=== PATIENT | male | born 1960 | race Caucasian/White ===

== ENCOUNTER → 2019-09-29 15:05 | Outpatient (BNVA) | payer BC, SELFPAY | PROVIDERS: Family Provider Nurse Practitioner; PCP Nurse Practitioner; Referring Provider Nurse Practitioner; Visit Provider Internal Medicine Rheumatology | DX: M05.9 Rheumatoid arthritis with rheumatoid factor, unspecified (principal); Z79.899 Other long term (current) drug therapy; Z79.52 Long term (current) use of systemic steroids | CPT/HCPCS: 99213 ==

== ENCOUNTER → 2019-10-27 14:25 | Outpatient (BNVA) | payer BC, SELFPAY | PROVIDERS: Family Provider Nurse Practitioner; PCP Nurse Practitioner; Visit Provider Internal Medicine Rheumatology | DX: M05.9 Rheumatoid arthritis with rheumatoid factor, unspecified (principal); Z79.899 Other long term (current) drug therapy | CPT/HCPCS: 36415; 80076; 82565; 85651; 86140 ==

== ENCOUNTER → 2019-10-27 14:32 | Outpatient (BNVA) | payer BC, SELFPAY | PROVIDERS: Family Provider Nurse Practitioner; PCP Nurse Practitioner; Visit Provider Internal Medicine Rheumatology | DX: M05.9 Rheumatoid arthritis with rheumatoid factor, unspecified (principal); Z79.899 Other long term (current) drug therapy | CPT/HCPCS: 85025 ==

== ENCOUNTER → 2020-01-06 12:06 | Outpatient (BNVA) | payer BC, SELFPAY | PROVIDERS: Family Provider Nurse Practitioner; PCP Nurse Practitioner; Visit Provider Internal Medicine Rheumatology | DX: M05.9 Rheumatoid arthritis with rheumatoid factor, unspecified (principal); Z79.899 Other long term (current) drug therapy; Z79.52 Long term (current) use of systemic steroids | CPT/HCPCS: 36415; 80076; 82565; 85025; 85651; 86140 ==

== ENCOUNTER → 2020-03-29 14:56 | Outpatient (BNVA) | payer BC, SELFPAY | PROVIDERS: Family Provider Nurse Practitioner; PCP Nurse Practitioner; Visit Provider Internal Medicine Rheumatology | DX: M05.9 Rheumatoid arthritis with rheumatoid factor, unspecified (principal); Z71.9 Counseling, unspecified; Z79.899 Other long term (current) drug therapy | CPT/HCPCS: 36415; 80076; 82565; 85025; 85651; 86140 ==

== ENCOUNTER → 2020-04-06 14:50 | Outpatient (BNVA) | payer BC, SELFPAY | PROVIDERS: Family Provider Nurse Practitioner; PCP Nurse Practitioner; Visit Provider Internal Medicine Rheumatology | DX: M05.79 Rheumatoid arthritis with rheumatoid factor of multiple sites without organ or systems involvement (principal); Z79.899 Other long term (current) drug therapy; Z79.52 Long term (current) use of systemic steroids | CPT/HCPCS: 99214 ==

== ENCOUNTER → 2020-06-09 15:43 | Outpatient (BNVA) | payer BC, SELFPAY | PROVIDERS: Family Provider Nurse Practitioner; PCP Nurse Practitioner; Visit Provider Nurse Practitioner Family | DX: Z20.828 Contact with and (suspected) exposure to other viral communicable diseases (principal) | CPT/HCPCS: 87635 ==

== ENCOUNTER 2020-06-15 15:11 | Outpatient (CLI) | payer BC, SELFPAY ==
--- NOTE | 2020-06-15 15:14 | XRR_ITS ---
PROCEDURE INFORMATION: Exam: XR Chest, 1 View Exam date and time: 06/15/2020 3:27 PM Age: 60 years old Clinical indication: Abnormal findings; Other: Low o2 90 TECHNIQUE: Imaging protocol: XR of the chest Views: 1 view. COMPARISON: No relevant prior studies available. FINDINGS: Lungs: Unremarkable. No consolidation. Pleural space: Unremarkable. No pleural effusion. No pneumothorax. Heart/Mediastinum: Unremarkable. No cardiomegaly. Bones/joints: Unremarkable. XR/XR chest 1V [id number] IMPRESSION: No acute findings.
== END 2020-06-15 15:12 | disposition home or self-care (01) ==
LOC: RAD 15:13
PROVIDERS: PCP Nurse Practitioner; Visit Provider Nurse Practitioner
DX: U07.1 COVID-19 (principal)
CPT/HCPCS: 71045; 80053; 85025

== ENCOUNTER 2020-06-16 19:24 | Emergency (ER) | payer BC, SELFPAY ==
[2020-06-16] VITALS (9 sets, daily range): BP systolic 118–129; BP diastolic 74–87; PULSE 98–106; RESP 20–29; TEMP 37.3; O2SAT 88–94; BMI 30.8
--- NOTE | 2020-06-16 19:44 | XR_ITS ---
WS: [id number] Portable AP upright chest, 06/16/2020 Clinical Data: cp Comparison: AP chest, 06/15/2020. Findings: No nodules, masses or effusions are seen. The heart is normal. The pulmonary vascularity is not increased. No pneumonia or pneumothorax is seen. The aortic arch and descending aorta are tortuo us. There are monitor leads on the chest wall. There are 2 orthopedic anchors in the left humeral hea d. XR/XR chest 1V portable [id number] Impression: Atherosclerosis.
--- NOTE | 2020-06-16 19:50 | W.ED.SOB ---
HPI - SOB/Dyspnea General: Chief Complaint: Shortness of Breath/Dyspnea Stated Complaint: sob Time Seen by Provider: 06/16/20 19:34 Source: patient Mode of arrival: ambulatory Limitations: no limitations History of Present Illness: HPI Narrative: 60-year-old male who tested for COVID last week. Patient had a positive test. He states that today he started having worsening shortness of breath throughout the day along with a cough. Patient's pulse ox here on room air was in the low 80s and is currently on 4 L of oxygen. He has had fevers as well. He denies any chest pain. Denies any worsening or improving factors. MD elicited complaint: shortness of breath Associated symptoms: Reports fever(s); Deny abdominal pain, chest pain, nausea or vomiting Review of Systems Const: Reports: fever(s), chills and body aches Eyes: Denies: blurry vision or eye discomfort ENMT: Denies: throat pain or dental pain Card: Denies: chest pain Resp: Reports: dyspnea and non-productive cough GI: Denies: abdominal pain, nausea, vomiting or diarrhea : Denies: dysuria Musc: Denies: neck pain or back pain Skin/Breast: Denies: rash Neuro: Denies: headache(s) Psych: Denies: depression Todd/Lymph: Denies: easy bruising All/Imm: Denies: urticaria PFSH ED PFSH: Medical History (Updated 06/16/20 @ 20:53 by Panchito Mo MD) Encounter for health education High risk medication use Immunization counseling Other detention (current) drug therapy Rheumatoid arthritis with positive rheumatoid factor Seropositive rheumatoid arthritis of multiple sites Surgical History History of left cataract surgery History of partial surgical removal of colon Hx of eye surgery Hx of shoulder surgery S/P left knee arthroscopy Family History Other Cancer Diabetes Hypertension Rheumatoid arthritis Denies family history of Chronic kidney disease (CKD) Systemic lupus erythematosus (SLE) in adult Social History (Updated 06/15/20 @ 13:20 by ARMANDO Pretty) Smoking and tobacco status: never smoked Second hand smoke exposure: No Smoking risk assessment/counseling performed?: No Alcohol intake: never Desire information about alcohol rehabilitation?: No Counseling given: No Desire information about substance/drug rehabilitation?: No Counseling given: No Adopted: No Caregiver/support person: No Lives independently: Yes Household members: spouse Housing: House Marital status: service: No Current occupational status: employed History of recent travel: No Current gender identity: Male Physical Exam Const: COMMON NORMALS: no acute distress, patient oriented x3 and healthy appearing HENMT: COMMON NORMALS: normocephalic and atraumatic HEAD & SCALP: normocephalic and atraumatic Eye: COMMON NORMALS: Equal, round and reactive pupils present and EOMs intact bilaterally PUPIL: Yes Equal, round and reactive pupils present Neck/C-Spine: COMMON NORMALS: full ROM and supple Chest: COMMONS NORMALS: normal inspection of the chest and normal palpation of entire chest wall Resp: COMMON NORMALS: normal respiratory effort, No retractions and No use of accessory muscles AUSCULTATION: rales Cardio: COMMON NORMALS: regular rate, regular rhythm and No murmurs present (Cardio) RATE: regular rate RHYTHM: regular rhythm GI: COMMON NORMALS: Normal to inspection, nondistended, normoactive bowel sounds present, Soft to palpation, non-tender and no masses PALPATION: Yes Soft to palpation Extremity: COMMON NORMALS: normal to inspection and full ROM Neuro: COMMON NORMALS: patient oriented x3, moves all extremities and no focal motor deficits Psych: COMMON NORMALS: mental status grossly normal, Normal thought process present and cooperative THOUGHT PROCESS: Normal thought process present Skin: COMMON NORMALS: no rashes or lesions noted and no wounds GENERAL SKIN EXAM: no rashes or lesions noted Course Vital Signs: Vital signs: Vital Signs Temperature 99.1 F 06/16/20 19:41 Pulse Rate 103 H 06/16/20 19:41 Respiratory Rate 20 H 06/16/20 19:41 Blood Pressure 129/83 06/16/20 19:41 Pulse Oximetry 88 L 06/16/20 19:41 MDM - SOB/Dyspnea MDM Narrative: Medical decision making narrative: The patient presents here with COVID-19 pneumonia. Patient is done at this time. X-ray is consistent with COVID. We will have to transfer due to bed availability. I spoke to Dr. Palomo at [facility] and will transfer there. Patient has been stable while here. Lab Data: Labs: Lab Results 06/16/20 06/16/20 06/16/20 Range/Units 20:15 20:15 20:15 WBC 5.0 (4.0-10.0) 10^3/ uL RBC 4.68 (4.1-5.3) 10^6/u L Hgb 15.0 (11.7-16.6) g/dL Hct 44.4 (42.0-52.0) % MCV 94.9 H (80-94) fL MCH 32.1 (28.0-34.0) pg MCHC 33.8 (30.0-36.0) g/dL RDW 14.0 (12.1-15.1) % Plt Count 180 (130-400) 10^3/c mm MPV 10.7 H (7.4-10.4) fL Neut % (Auto) 85.2 % Lymph % (Auto) 6.4 % Swisher % (Auto) 7.8 % Eos % (Auto) 0.0 % Baso % (Auto) 0.2 % Neut # (Auto) 4.24 (1.8-7.7) 10^3/u L Lymph # (Auto) 0.3 L (0.8-4.8) 10^3/u L Swisher # (Auto) 0.4 (0.2-0.9) 10^3/u L Eos # (Auto) 0.0 (0.0-0.8) 10^3/u L Baso # (Auto) 0.0 (0.0-0.1) 10^3/u L Nucleated RBC % (a uto) 0 % Nucleated RBCs # 0.0 /100WBC Fibrinogen 462 (174-498) mg/dL Sodium 135 L (136-145) mmol/L Potassium 4.1 (3.5-5.1) mmol/L Chloride 97 L (98-107) mmol/L Carbon Dioxide 28 (22-29) mmol/L Anion Gap 14.1 (5-19) BUN 14 (6-20) mg/dL Creatinine 1.1 (0.7-1.2) mg/dL GFR Calculation 68.5 L (90-130) mL/min Glucose 130 H (65-115) mg/dL Calculated Osmolal ity 282 L (285-295) mOsm/k g Lactic Acid (0.5-2.2) mmol/L Calcium 8.6 (8.5-10.5) mg/dL Total Bilirubin 0.8 (0.15-1.2) mg/dL AST 88 H (0-40) U/L ALT 49 H (0-41) U/L Alkaline Phosphata se 38 L (40-130) IU/L Total Protein 6.9 (6.6-8.7) g/dL Albumin 3.7 (3.5-5.2) g/dL Globulin 3.2 (1.3-4.6) g/dL Influenza Type A A g (Negative) Influenza Type B A g (Negative) 06/16/20 06/16/20 Range/Units 20:15 20:15 WBC (4.0-10.0) 10^3/ uL RBC (4.1-5.3) 10^6/u L Hgb (11.7-16.6) g/dL Hct (42.0-52.0) % MCV (80-94) fL MCH (28.0-34.0) pg MCHC (30.0-36.0) g/dL RDW (12.1-15.1) % Plt Count (130-400) 10^3/c mm MPV (7.4-10.4) fL Neut % (Auto) % Lymph % (Auto) % Swisher % (Auto) % Eos % (Auto) % Baso % (Auto) % Neut # (Auto) (1.8-7.7) 10^3/u L Lymph # (Auto) (0.8-4.8) 10^3/u L Swisher # (Auto) (0.2-0.9) 10^3/u L Eos # (Auto) (0.0-0.8) 10^3/u L Baso # (Auto) (0.0-0.1) 10^3/u L Nucleated RBC % (a uto) % Nucleated RBCs # /100WBC Fibrinogen (174-498) mg/dL Sodium (136-145) mmol/L Potassium (3.5-5.1) mmol/L Chloride (98-107) mmol/L Carbon Dioxide (22-29) mmol/L Anion Gap (5-19) BUN (6-20) mg/dL Creatinine (0.7-1.2) mg/dL GFR Calculation (90-130) mL/min Glucose (65-115) mg/dL Calculated Osmolal ity (285-295) mOsm/k g Lactic Acid 1.8 (0.5-2.2) mmol/L Calcium (8.5-10.5) mg/dL Total Bilirubin (0.15-1.2) mg/dL AST (0-40) U/L ALT (0-41) U/L Alkaline Phosphata se (40-130) IU/L Total Protein (6.6-8.7) g/dL Albumin (3.5-5.2) g/dL Globulin (1.3-4.6) g/dL Influenza Type A A g Negative (Negative) Influenza Type B A g Negative (Negative) Imaging Data^: CXR: Attestation: I personally reviewed and interpreted this imaging study as follows: My impression: bilateral infiltrates c/w covid EKG Data^: EKG 1: Attestation: I personally reviewed and interpreted this EKG as follows: EKG Interpretation Date: 06/16/20 EKG interpretation time: 19:02 Interpretation: sinus tach hr [address] or t wave abnormalities qrs 95 qtc 382 Discharge Plan Discharge Patient Disposition: Xfer Other Clinical Impression: COVID-19 Condition: Stable Discharge Orders: Transfer Out of Facility (Order); Ordered 06/16/20 Ordered By: Panchito Mo Referrals: Gladys Stacy, COLLECTION CLERK-C [Primary Care Provider] - Coding Level of Care Code ED Professor Of Astronomy for Chg Fwd Exam Comprehensive
[2020-06-16] MEDS: dexamethasone 10 mg/mL INJ IVP (19:52)
[2020-06-16 20:31] LABS: Basophils % 0.2 %; Hematocrit 44.4 % (42.0-52.0); Lymphocytes # 0.3 10^3/uL (0.8-4.8); Lymphocytes % 6.4 %; Mean Corpuscular HGB Conc 33.8 g/dL (30.0-36.0); Mean Corpuscular Hemoglobin 32.1 pg (28.0-34.0); Mean Corpuscular Volume 94.9 fL (80-94); Mean Platelet Volume 10.7 fL (7.4-10.4); Monocytes # 0.4 10^3/uL (0.2-0.9); Monocytes % 7.8 %; Neutrophils # 4.24 10^3/uL (1.8-7.7); Neutrophils % 85.2 %; Nucleated Red Blood Cells % 0 %; Platelet Count 180 10^3/cmm (130-400); Red Blood Count 4.68 10^6/uL (4.1-5.3)
[2020-06-16 20:50] LABS: Fibrinogen 462 mg/dL (174-498); Lactic Sepsis W/Reflex 1.8 mmol/L (0.5-2.2)
[2020-06-16 20:51] LABS: Alanine Aminotransferase 49 U/L (0-41); Albumin Level 3.7 g/dL (3.5-5.2); Alkaline Phosphatase 38 IU/L (40-130); Blood Urea Nitrogen 14 mg/dL (6-20); Calcium 8.6 mg/dL (8.5-10.5); Carbon Dioxide 28 mmol/L (22-29); Chloride 97 mmol/L (98-107); Globulin 3.2 g/dL (1.3-4.6); Glomerular Filtration Rate 68.5 mL/min (90-130); Glucose 130 mg/dL (65-115); Osmolality Calculated 282 mOsm/kg (285-295); Sodium 135 mmol/L (136-145); Total Bilirubin 0.8 mg/dL (0.15-1.2); Total Protein 6.9 g/dL (6.6-8.7)
[2020-06-16 20:58] LABS: Anion Gap 14.1 (5-19); Aspartate Amino Transferase 88 U/L (0-40); Potassium 4.1 mmol/L (3.5-5.1)
[2020-06-16 21:12] LABS: Influenza A by IFA Negative (Negative); Influenza B by IFA Negative (Negative)
[2020-06-16 22:19] LABS: Lactate Dehydrogenase 574 U/L (135-225)
[2020-06-16 22:49] LABS: C Reactive Protein 84.1 mg/L (0.0-4.9)
[2020-06-16 23:00] LABS: Ferritin 1274 ng/mL (30-400)
[2020-06-17] VITALS: BP 130/82; PULSE 94; RESP 23; TEMP 37.3; O2SAT 91
[2020-06-17 01:00] VITALS: BP 136/88; PULSE 98; RESP 28; O2SAT 92
== END 2020-06-17 01:38 | disposition other institution (70) ==
PROVIDERS: Emergency Provider Emergency Medicine; PCP Nurse Practitioner
DX: U07.1 COVID-19 (principal)
CPT/HCPCS: 12345; 71045; 80053; 82728; 83605; 83615; 85025; 85378; 85384; 86140; 87804; 96365; 96375; 99284; 99285; J1100

== ENCOUNTER → 2020-07-25 11:21 | Outpatient (BNVA) | payer BC, SELFPAY | PROVIDERS: PCP Nurse Practitioner; Visit Provider Nurse Practitioner | DX: R00.2 Palpitations (principal) | CPT/HCPCS: 80053; 83735; 85025 ==

== ENCOUNTER → 2020-07-26 14:06 | Outpatient (BNVA) | payer BC, SELFPAY | PROVIDERS: PCP Nurse Practitioner; Visit Provider Nurse Practitioner | DX: R73.9 Hyperglycemia, unspecified (principal) | CPT/HCPCS: 83036 ==

== ENCOUNTER 2020-09-07 07:39 | Outpatient (CLI) | payer BC, SELFPAY ==
--- NOTE | 2020-09-07 07:49 | USCV_ITS ---
Federico Joyce Age: 60 Gender: M : 1960 Exam Date: 09/07/2020 08:05 Ordering Phys: Mayito Agudelo M.D ([email or web address]) Technologist: Blanca Taylor [place] [facility] [place]: PALPITATIONS BP: 129 / 89 HR: 80 Rhythm: Sinus Technical Quality: Adequate MEASUREMENTS (Male / Female) Normal Values 2D ECHO LV Diastolic Diameter PLAX 4.2 cm 4.2 - 5.9 / 3.9 - 5.3 cm LV Systolic Diameter PLAX 3.0 cm LV Chamber Size 4.6 cm IVS Diastolic Thickness 1.2 cm 0.6 - 1.0 / 0.6 - 0.9 cm IVS Systolic Thickness 1.4 cm LVPW Diastolic Thickness 1.3 cm 0.6 - 1.0 / 0.6 - 0.9 cm LVPW Systolic Thickness 1.4 cm RV Chamber Size 3.5 cm LVOT Diameter 2.0 cm LV Ejection Fraction 2D Teich 54.2 % LV Ejection Fraction MOD 2C 62.0 % LV Ejection Fraction 2C AL 62.1 % LA Diameter 3.2 cm LA Width 3.5 cm LA Height 4.4 cm RA Width 3.0 cm RA Height 3.5 cm Aorta at Sinotubular Diameter 2.8 cm M-MODE LV Diastolic Diameter MM 3.8 cm 4.2 - 5.9 / 3.9 - 5.3 cm LV Systolic Diameter MM 2.6 cm LV Ejection Fraction MM Teich 59.0 % IVS Diastolic Thickness MM 4.6 cm 0.6 - 1.0 / 0.6 - 0.9 cm IVS Systolic Thickness MM 2.3 cm LVPW Diastolic Thickness MM 0.9 cm 0.6 - 1.0 / 0.6 - 0.9 cm LVPW Systolic Thickness MM 1.7 cm Aortic Annulus Diameter 3.4 cm LA Ao Ratio MM 0.9 MV E Point Septal Separation 0.6 cm DOPPLER AV Peak Velocity 118.7 cm/s LVOT Peak Velocity 101.7 cm/s AV Area Cont Eq vti 2.8 cm squared AV Area Cont Eq pk 2.8 cm squared MV Area PHT 3.4 cm squared Mitral E to A Ratio 0.7 MV E' Velocity 49.4 cm/s Mitral E to MV E' Ratio 6.7 Mitral E to LV E' Lateral Ratio 5.6 Mitral E to LV E' Septal Ratio 8.4 TR Peak Velocity 166.0 cm/s TR Peak Gradient 11.0 mmHg TV Peak E Velocity 64.0 cm/s Right Atrial Pressure 3.0 mmHg Pulmonary Artery Systolic Pressu 14.0 mmHg PV Peak Velocity 50.0 cm/s RV Acceleration Time 0.1 s RV Ejection Time 0.3 s RV AcT/ET 0.3 FINDINGS Left Ventricle Normal left ventricular size and systolic function with no regional wall motion abnormalities. LVEF is 55 to 60%. Grade 1 diastolic dysfunction is present. Right Ventricle The right ventricle is normal in size and function. Right Atrium The right atrium is normal in size. Left Atrium The left atrium is normal in size. Mitral Valve Structurally normal mitral valve without significant stenosis or prolapse. There is no mitral regurgitation. Aortic Valve Structurally normal aortic valve without significant sclerosis or stenosis. There is trace aortic regurgitation. Tricuspid Valve Structurally normal tricuspid valve without significant stenosis or regurgitation. Insufficient TR jet to calculate RVSP. Pulmonic Valve Structurally normal pulmonic valve without significant stenosis. There is trace pulmonic regurgitation. Pericardium Normal pericardium without effusion. Aorta Normal ascending aorta dimension. CONCLUSIONS Normal with EF 55 to 60%. Grade 1 diastolic dysfunction is noted. No significant valvular heart disease is present. Trace aortic regurgitation and pulmonic regurgitation are noted. No comparison studies are available. Mayito Agudelo MD (Electronically Signed) Final Date: 15 September 2020 13:52 S
== END 2020-09-07 07:40 | disposition home or self-care (01) ==
LOC: US 07:41
PROVIDERS: PCP Nurse Practitioner; Visit Provider Internal Medicine
DX: R00.2 Palpitations (principal)
CPT/HCPCS: 93306

== ENCOUNTER → 2020-10-13 12:19 | Outpatient (BNVA) | payer OTHER, SELFPAY | PROVIDERS: PCP Nurse Practitioner; Visit Provider Nurse Practitioner | DX: R73.9 Hyperglycemia, unspecified (principal); Z29.9 Encounter for prophylactic measures, unspecified; K21.9 Gastro-esophageal reflux disease without esophagitis | CPT/HCPCS: 80053; 83036; 85025 ==

== ENCOUNTER → 2020-10-21 12:08 | Outpatient (BNVA) | payer OTHER, SELFPAY | PROVIDERS: PCP Nurse Practitioner; Visit Provider Internal Medicine Pulmonary Disease | DX: Z20.822 Contact with and (suspected) exposure to COVID-19 (principal); R06.02 Shortness of breath | CPT/HCPCS: 87635 ==

== ENCOUNTER 2020-10-25 10:11 | Outpatient (CLI) | payer OTHER, SELFPAY ==
--- NOTE | 2020-10-25 10:30 | CT_ITS ---
WS: [id number] CTA OF THE CHEST WITH PULMONARY EMBOLISM PROTOCOL TECHNIQUE: High-resolution contrast enhanced CTA of the chest with coronal and sagittal reformatted i mages with pulmonary embolism protocol. MIP images are also reviewed. CLINICAL INFORMATION: shortness of breath COMPARISON: None. DLP: 568.[address] scans at [facility] use at least one of these dose optimization techniques: automat ed exposure control; mA and/or kV adjustment per patient size (includes targeted exams where dose is matched to clinical indication); or iterative reconstruction. FINDINGS: Proximal main pulmonary arteries are normal. Normal segmental and subsegmental pulmonary arteries. No evidence of pulmonary embolus. Advanced chronic emphysematous changes. Slight atelectasis in the lung bases. Hazy atelectasis in the mid and lower lungs. No mediastinal or hilar lymphadenopathy. Cholelithiasis. Adrenal glands are normal. Small esophageal hiatal hernia. CT/CT angio chest PE protcl [id number] IMPRESSION: 1. No evidence of pulmonary embolus. 2. Advanced chronic emphysematous changes with hazy atelectasis in the mid and lower lungs. 3. No focal pneumonia or pleural fluid. 4. Cholelithiasis.
[2020-10-25] MEDS: iohexol 350 mg/mL 100 mL Btl IV (10:37)
--- NOTE | 2020-10-25 14:09 | PFTS_ITS ---
Date of Study:10/25/20 Date of Dictation: MECHANICS: Forced vital capacity (FVC) is normal. Forced expiratory volume in one second (FEV1) is normal. FEV1/FVC is normal. FLOW VOLUME LOOP: Normal. LUNG VOLUMES: Total lung capacity (TLC) is reduced. Residual volume (RV) is reduced. DIFFUSING CAPACITY FOR CARBON MONOXIDE: Normal. INTERPRETATION: The prebronchodilator spirometry is normal. Lung volumes showed mild reduction of total lung capacity and residual volume. This could be suggestive of early interstitial lung disease. Gas exchange (DLCO) is normal. MTDD
== END 2020-10-25 10:12 | disposition home or self-care (01) ==
LOC: CT 10:17
PROVIDERS: PCP Nurse Practitioner; Visit Provider Internal Medicine Pulmonary Disease
DX: R06.02 Shortness of breath (principal); J06.9 Acute upper respiratory infection, unspecified; K80.20 Calculus of gallbladder without cholecystitis without obstruction
CPT/HCPCS: 71275; 94010; 94618; 94726; 94729

== ENCOUNTER → 2020-11-29 15:19 | Outpatient (BNVA) | payer OTHER, SELFPAY | PROVIDERS: PCP Nurse Practitioner; Visit Provider Internal Medicine Rheumatology | DX: M05.79 Rheumatoid arthritis with rheumatoid factor of multiple sites without organ or systems involvement (principal); Z79.899 Other long term (current) drug therapy; Z79.52 Long term (current) use of systemic steroids; Z86.16 Personal history of COVID-19 | CPT/HCPCS: 99214 ==

== ENCOUNTER → 2021-01-12 12:10 | Outpatient (BNVA) | payer OTHER, SELFPAY | PROVIDERS: PCP Nurse Practitioner; Visit Provider Nurse Practitioner | DX: E11.65 Type 2 diabetes mellitus with hyperglycemia (principal); K21.9 Gastro-esophageal reflux disease without esophagitis | CPT/HCPCS: 80053; 80061; 83036 ==

== ENCOUNTER → 2021-01-26 09:58 | Outpatient (BNVA) | payer OTHER, SELFPAY | PROVIDERS: PCP Nurse Practitioner; Visit Provider Internal Medicine Rheumatology | DX: Z79.899 Other long term (current) drug therapy (principal); M05.79 Rheumatoid arthritis with rheumatoid factor of multiple sites without organ or systems involvement | CPT/HCPCS: 36415; 80076; 82565; 85025; 86140 ==

== ENCOUNTER → 2021-04-03 10:52 | Outpatient (BNVA) | payer OTHER, SELFPAY | PROVIDERS: PCP Nurse Practitioner; Visit Provider Internal Medicine Rheumatology | DX: M05.79 Rheumatoid arthritis with rheumatoid factor of multiple sites without organ or systems involvement (principal); Z79.899 Other long term (current) drug therapy; Z71.89 Other specified counseling | CPT/HCPCS: 99214 ==

== ENCOUNTER → 2021-05-23 15:22 | Outpatient (BNVA) | payer OTHER, SELFPAY | PROVIDERS: PCP Nurse Practitioner; Visit Provider Nurse Practitioner | DX: E11.65 Type 2 diabetes mellitus with hyperglycemia (principal); M05.79 Rheumatoid arthritis with rheumatoid factor of multiple sites without organ or systems involvement; Z79.899 Other long term (current) drug therapy; E66.9 Obesity, unspecified | CPT/HCPCS: 80053; 80076; 82565; 83036; 85025; 86140 ==

== ENCOUNTER → 2021-07-12 10:48 | Outpatient (BNVA) | payer OTHER, SELFPAY | PROVIDERS: PCP Nurse Practitioner; Visit Provider Internal Medicine Pulmonary Disease | DX: R06.02 Shortness of breath (principal); Z20.822 Contact with and (suspected) exposure to COVID-19 | CPT/HCPCS: 87635 ==

== ENCOUNTER 2021-07-18 10:45 | Outpatient (CLI) | payer OTHER, SELFPAY ==
--- NOTE | 2021-07-18 12:59 | PFTS_ITS ---
Date of Study:07/18/21 Date of Dictation: MECHANICS: Forced vital capacity (FVC) is normal. Forced expiratory volume in one second (FEV1) is normal. FEV1/FVC is normal. FLOW VOLUME LOOP: Normal. LUNG VOLUMES: Total lung capacity (TLC) is normal. Residual volume (RV) is reduced minimally. DIFFUSING CAPACITY FOR CARBON MONOXIDE: Normal. INTERPRETATION: The pulmonary function tests are normal. The minimally reduced residual volume is a nonspecific finding. Gas exchange (DLCO) is normal. MTDD
== END 2021-07-18 10:46 | disposition home or self-care (01) ==
LOC: RT 10:48
PROVIDERS: PCP Nurse Practitioner; Visit Provider Internal Medicine Pulmonary Disease
DX: R06.02 Shortness of breath (principal)
CPT/HCPCS: 94010; 94726; 94729

== ENCOUNTER → 2021-07-25 12:58 | Outpatient (BNVA) | payer OTHER, SELFPAY | PROVIDERS: PCP Nurse Practitioner; Visit Provider Internal Medicine Rheumatology | DX: M05.79 Rheumatoid arthritis with rheumatoid factor of multiple sites without organ or systems involvement (principal); Z79.899 Other long term (current) drug therapy; R74.01 Elevation of levels of liver transaminase levels; Z98.49 Cataract extraction status, unspecified eye; Z71.89 Other specified counseling; Z87.891 Personal history of nicotine dependence | CPT/HCPCS: 99214 ==

== ENCOUNTER → 2021-08-02 15:33 | Outpatient (BNVA) | payer OTHER, SELFPAY | PROVIDERS: PCP Nurse Practitioner; Visit Provider Internal Medicine Rheumatology | DX: M05.9 Rheumatoid arthritis with rheumatoid factor, unspecified (principal); Z79.899 Other long term (current) drug therapy; M05.79 Rheumatoid arthritis with rheumatoid factor of multiple sites without organ or systems involvement | CPT/HCPCS: 80076; 82565; 85025; 86140 ==

== ENCOUNTER → 2021-09-11 16:06 | Outpatient (BNVA) | payer OTHER, SELFPAY | PROVIDERS: PCP Nurse Practitioner; Visit Provider Nurse Practitioner Family | DX: Z20.828 Contact with and (suspected) exposure to other viral communicable diseases (principal); Z20.822 Contact with and (suspected) exposure to COVID-19 | CPT/HCPCS: 87635 ==

== ENCOUNTER 2021-09-14 09:47 | Outpatient (CLI) | payer OTHER, SELFPAY ==
[2021-09-14 10:20] VITALS: BP 134/91; BP 135/92; PULSE 73; PULSE 77; RESP 16; RESP 18; TEMP 36.6; TEMP 36.8; O2SAT 95; O2SAT 97; BMI 31.5
[2021-09-14 11:00] VITALS: BP 130/85; PULSE 68; RESP 16; TEMP 36.7; O2SAT 96
[2021-09-14 12:00] VITALS: BP 135/92; PULSE 73; RESP 16; TEMP 36.7; O2SAT 95
== END 2021-09-14 09:48 | disposition home or self-care (01) ==
LOC: OPS 09:48
PROVIDERS: PCP Nurse Practitioner; Visit Provider Nurse Practitioner Family
DX: U07.1 COVID-19 (principal)
CPT/HCPCS: 96365

== ENCOUNTER → 2021-09-28 10:39 | Outpatient (BNVA) | payer OTHER, SELFPAY | PROVIDERS: PCP Nurse Practitioner; Visit Provider Nurse Practitioner | DX: E11.65 Type 2 diabetes mellitus with hyperglycemia (principal); R74.8 Abnormal levels of other serum enzymes; E78.1 Pure hyperglyceridemia; E11.69 Type 2 diabetes mellitus with other specified complication; E66.9 Obesity, unspecified | CPT/HCPCS: 80053; 80061; 82043; 83036 ==

== ENCOUNTER → 2021-10-11 13:56 | Outpatient (BNVA) | payer OTHER, SELFPAY | PROVIDERS: PCP Nurse Practitioner; Visit Provider Registered Nurse Neonatal Intensive Care | DX: M25.512 Pain in left shoulder (principal) | CPT/HCPCS: 73030 ==

== ENCOUNTER → 2022-02-05 15:57 | Outpatient (BNVA) | payer OTHER, SELFPAY | PROVIDERS: PCP Nurse Practitioner; Visit Provider Nurse Practitioner | DX: E78.1 Pure hyperglyceridemia (principal); E11.65 Type 2 diabetes mellitus with hyperglycemia; E11.69 Type 2 diabetes mellitus with other specified complication; E66.9 Obesity, unspecified | CPT/HCPCS: 80053; 80061; 82043; 83036; 83721 ==

== ENCOUNTER 2022-04-13 06:07 | Outpatient (CLI) | payer OTHER, SELFPAY ==
--- NOTE | 2022-04-13 06:15 | US_ITS ---
WS: [id number] RIGHT UPPER QUADRANT ULTRASOUND HISTORY: R79.89 - Other specified abnormal findings of blood chemi... COMPARISON: None available. Liver: 18.5 cm in length. Moderate enlargement of the liver with marked hepatic steatosis. Low-attenu ation throughout the liver. No mass or bile duct dilatation. Portal Vein: Normal hepatopetal flow with monophasic waveform. Gallbladder: Normally distended gallbladder with no stones or wall thickening. CBD: 0.4 cm Pancreas: Normal size and echogenicity. Right kidney: 12.1 cm in length. Normal size and echogenicity. No hydronephrosis or mass. Aorta and IVC: Unremarkable abdominal aorta and IVC. No ascites. US/US liver [id number] IMPRESSION: Moderate hepatomegaly and hepatic steatosis.
== END 2022-04-13 06:08 | disposition home or self-care (01) ==
PROVIDERS: PCP Nurse Practitioner; Visit Provider Internal Medicine Rheumatology
DX: R79.89 Other specified abnormal findings of blood chemistry (principal); R16.0 Hepatomegaly, not elsewhere classified; K76.0 Fatty (change of) liver, not elsewhere classified
CPT/HCPCS: 76705

== ENCOUNTER 2022-07-04 10:12 | Outpatient (CLI) | payer OTHER, SELFPAY ==
[2022-07-04 10:32] LABS: Basophils # 0.1 10^3/uL (0.0-0.1); Basophils % 0.6 %; Eosinophils # 0.1 10^3/uL (0.0-0.8); Eosinophils % 1.4 %; Hematocrit 48.9 % (42.0-52.0); Hemoglobin 16.6 g/dL (11.7-16.6); Lymphocytes # 2.2 10^3/uL (0.8-4.8); Lymphocytes % 22.9 %; Mean Corpuscular HGB Conc 33.9 g/dL (30.0-36.0); Mean Corpuscular Hemoglobin 31.1 pg (28.0-34.0); Mean Corpuscular Volume 91.6 fl (80-94); Mean Platelet Volume 10.5 fL (7.4-10.4); Monocytes # 1.1 10^3/uL (0.2-0.9); Monocytes % 11.7 %; Neutrophils # 5.97 10^3/uL (1.8-7.7); Neutrophils % 63.2 %; Nucleated Red Blood Cells % 0 %; Platelet Count 276 10^3/cmm (130-400); Red Blood Count 5.34 10^6/uL (4.1-5.3); Red Cell Distribution Width 12.8 % (12.1-15.1); White Blood Count 9.4 10^3/uL (4.0-10.0)
[2022-07-04 10:56] LABS: Alanine Aminotransferase 91 U/L (0-41); Albumin Level 4.3 g/dL (3.5-5.2); Alkaline Phosphatase 71 U/L (40-130); Aspartate Amino Transferase 67 U/L (0-40); Globulin 3.5 g/dL (1.3-4.6); Glomerular Filtration Rate 68.1 mL/min (90-130); Total Bilirubin 0.6 mg/dL (0.15-1.2); Total Protein 7.8 g/dL (6.6-8.7)
== END 2022-07-04 10:13 | disposition home or self-care (01) ==
LOC: LAB 10:13
PROVIDERS: PCP Nurse Practitioner; Visit Provider Internal Medicine Rheumatology
DX: M05.79 Rheumatoid arthritis with rheumatoid factor of multiple sites without organ or systems involvement (principal); Z79.899 Other long term (current) drug therapy
CPT/HCPCS: 80076; 82565; 85025; 86140

== ENCOUNTER 2022-10-30 13:17 | Outpatient (CLI) | payer OTHER, SELFPAY ==
[2022-10-30 14:12] LABS: Basophils # 0.1 10^3/uL (0.0-0.1); Basophils % 0.6 %; Eosinophils # 0.2 10^3/uL (0.0-0.8); Eosinophils % 2.4 %; Hematocrit 46.9 % (42.0-52.0); Hemoglobin 15.9 g/dL (11.7-16.6); Lymphocytes # 3.4 10^3/uL (0.8-4.8); Mean Corpuscular HGB Conc 33.9 g/dL (30.0-36.0); Mean Corpuscular Hemoglobin 30.1 pg (28.0-34.0); Mean Corpuscular Volume 88.7 fl (80-94); Mean Platelet Volume 10.5 fL (7.4-10.4); Monocytes # 1.1 10^3/uL (0.2-0.9); Monocytes % 12.6 %; Neutrophils # 4.29 10^3/uL (1.8-7.7); Neutrophils % 47.2 %; Nucleated Red Blood Cells % 0 %; Platelet Count 247 10^3/cmm (130-400); Red Blood Count 5.29 10^6/uL (4.1-5.3); Red Cell Distribution Width 12.8 % (12.1-15.1); White Blood Count 9.1 10^3/uL (4.0-10.0)
[2022-10-30 14:30] LABS: Alanine Aminotransferase 64 U/L (0-41); Albumin Level 4.3 g/dL (3.5-5.2); Alkaline Phosphatase 58 U/L (40-130); Aspartate Amino Transferase 47 U/L (0-40); Globulin 2.8 g/dL (1.3-4.6); Glomerular Filtration Rate 85.8 mL/min (90-130); Total Protein 7.1 g/dL (6.6-8.7)
[2022-10-30 14:37] LABS: Erythrocyte Sedimentation Rate 8 mm/hr (0-10)
== END 2022-10-30 13:18 | disposition home or self-care (01) ==
LOC: LAB 13:20
PROVIDERS: PCP Nurse Practitioner; Visit Provider Internal Medicine Rheumatology
DX: M05.79 Rheumatoid arthritis with rheumatoid factor of multiple sites without organ or systems involvement (principal); Z79.899 Other long term (current) drug therapy
CPT/HCPCS: 36415; 80076; 82565; 85025; 85651; 86140

== ENCOUNTER → 2022-11-22 11:05 | Outpatient (BNVA) | payer OTHER, SELFPAY | PROVIDERS: PCP Nurse Practitioner; Visit Provider Nurse Practitioner | DX: E11.65 Type 2 diabetes mellitus with hyperglycemia (principal); E55.9 Vitamin D deficiency, unspecified | CPT/HCPCS: 80053; 80061; 81000; 82043; 82306; 83036; 84443 ==

== ENCOUNTER → 2022-12-20 13:36 | Outpatient (BNVA) | payer OTHER, SELFPAY | PROVIDERS: PCP Nurse Practitioner; Visit Provider Nurse Practitioner | DX: R41.3 Other amnesia (principal); E11.65 Type 2 diabetes mellitus with hyperglycemia; M05.79 Rheumatoid arthritis with rheumatoid factor of multiple sites without organ or systems involvement; Z79.899 Other long term (current) drug therapy | CPT/HCPCS: 80053; 82607; 84439; 84443; 84481; 85025 ==

== ENCOUNTER → 2023-04-17 14:40 | Outpatient (BNVA) | payer OTHER, SELFPAY | PROVIDERS: PCP Nurse Practitioner; Visit Provider Internal Medicine Rheumatology | DX: M05.79 Rheumatoid arthritis with rheumatoid factor of multiple sites without organ or systems involvement (principal); Z79.899 Other long term (current) drug therapy | CPT/HCPCS: 80076; 82565; 85025; 86140 ==

== ENCOUNTER → 2023-05-02 13:42 | Outpatient (BNVA) | payer OTHER, SELFPAY | PROVIDERS: PCP Nurse Practitioner; Visit Provider Nurse Practitioner | DX: E11.65 Type 2 diabetes mellitus with hyperglycemia (principal) | CPT/HCPCS: 80053; 80061; 82043; 83036; 84443 ==

== ENCOUNTER → 2023-10-17 14:37 | Outpatient (BNVA) | payer OTHER, SELFPAY | PROVIDERS: PCP Nurse Practitioner; Visit Provider Nurse Practitioner | DX: E11.65 Type 2 diabetes mellitus with hyperglycemia (principal); E78.1 Pure hyperglyceridemia; Z12.5 Encounter for screening for malignant neoplasm of prostate; E55.9 Vitamin D deficiency, unspecified | CPT/HCPCS: 80053; 80061; 82306; 82607; 84443; 85025; G0103 ==

== ENCOUNTER → 2024-03-10 09:57 | Outpatient (BNVA) | payer OTHER, SELFPAY | PROVIDERS: PCP Family Medicine; Visit Provider Family Medicine | DX: Z79.899 Other long term (current) drug therapy (principal); M05.79 Rheumatoid arthritis with rheumatoid factor of multiple sites without organ or systems involvement | CPT/HCPCS: 80076; 82565; 85025; 86140 ==

== ENCOUNTER → 2024-09-22 10:48 | Outpatient (BNVA) | payer OTHER, SELFPAY | PROVIDERS: Visit Provider Internal Medicine Rheumatology | DX: M05.79 Rheumatoid arthritis with rheumatoid factor of multiple sites without organ or systems involvement (principal); Z79.899 Other long term (current) drug therapy | CPT/HCPCS: 36415; 80076; 82565; 85025; 85651; 86140 ==

== ENCOUNTER → 2024-09-28 14:01 | Outpatient (BNVA) | payer OTHER, SELFPAY | PROVIDERS: Visit Provider Nurse Practitioner Family | DX: M54.2 Cervicalgia (principal); M54.9 Dorsalgia, unspecified; G89.29 Other chronic pain; M47.896 Other spondylosis, lumbar region; M47.892 Other spondylosis, cervical region | CPT/HCPCS: 72040; 72100 ==

== ENCOUNTER 2024-10-09 13:31 | Outpatient (CLI) | payer OTHER, SELFPAY ==
--- NOTE | 2024-10-09 14:00 | USCV_ITS ---
Federico Joyce Age: 64 Gender: M : 1960 Exam Date: 10/09/2024 13:48 Ordering Phys: Kaleigh Carmona CLOTHING SUPERVISOR-Babak Technologist: LORA [place] [facility] [place] Indication: stenosis Risk Factors: Previous Vascular Surgery: Right Brachial BP: / Left Brachial BP: / Right Left Velocity (cm/s) Spectral Plaque Velocity (cm/s) Spectral Plaque Syst/Diast Broadening Syst/Diast Broadening 78.30/ 21.70 Prox CCA 85.60 / 27.20 102.00/29.00 Mid CCA 92.90 / 30.80 85.30/ 34.40 Distal CCA 98.40 / 32.70 64.80/ 21.90 Prox ICA 95.60 / 25.90 63.50/ 19.30 Mid ICA 80.40 / 32.50 55.40/ 26.10 Distal ICA 91.90 / 21.20 117.00 ECA 132.60 0.80 ICA/CCA 1.00 Antegrade Vertebral Antegrade 32.20/ 10.60 cm/s 34.20/ 9.70 cm/s Tri Subclavian Tri 86.20 105.7 0 FINDINGS Comparison: none available. No significant elevation of systolic or diastolic velocities. Waveforms are normal. Minimal carotid atherosclerosis. CONCLUSIONS Bilateral ICA stenosis less than 50%. Mild carotid atherosclerosis. Dr. Yashira Woods DO (Electronically Signed) Final Date: 09 October 2024 14:43 S
== END 2024-10-09 13:32 | disposition home or self-care (01) ==
LOC: RAD 13:31
PROVIDERS: PCP Nurse Practitioner Family; Visit Provider Nurse Practitioner Family
DX: I65.23 Occlusion and stenosis of bilateral carotid arteries (principal)
CPT/HCPCS: 93880

== ENCOUNTER → 2024-10-14 16:58 | Outpatient (BNVA) | payer OTHER, SELFPAY | PROVIDERS: PCP Nurse Practitioner Family; Visit Provider Nurse Practitioner Family | DX: E11.65 Type 2 diabetes mellitus with hyperglycemia (principal) | CPT/HCPCS: 80053; 80061; 83036; 84443; 85025 ==

== ENCOUNTER → 2024-12-09 09:48 | Outpatient (BNVA) | payer OTHER, SELFPAY | PROVIDERS: PCP Nurse Practitioner Family; Visit Provider Nurse Practitioner Family | DX: E05.90 Thyrotoxicosis, unspecified without thyrotoxic crisis or storm (principal) | CPT/HCPCS: 84443 ==

== ENCOUNTER 2025-01-26 14:47 | Emergency (ER) | payer OTHER, SELFPAY ==
--- NOTE | 2025-01-26 14:48 | XR_ITS ---
WS: [id number] Exam: XR chest 1V portable [id number] Date/Time of Exam: 01/26/2025 2:48 PM Reason For Exam: cp Comparison 06/17/2020. Lungs are fully expanded and clear. Normal cardiomediastinal silhouette. Bony structures are intact. No pleural effusion. Chronic change in the LEFT base. XR/XR chest 1V portable [id number] IMPRESSION: 1. No acute cardiopulmonary finding.
--- NOTE | 2025-01-26 14:48 | ECG_ITS ---
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
[2025-01-26 14:50] VITALS: BP 119/77; PULSE 77; RESP 16; TEMP 36.7; O2SAT 97; BMI 28.7
--- NOTE | 2025-01-26 15:03 | ED_ITS ---
HPI - Chest Pain 2 General: Chief Complaint: Chest Pain Stated Complaint: chest pain Time Seen by Provider: 01/26/25 14:59 Source: patient Mode of arrival: ambulatory Limitations: no limitations History of Present Illness: 65-year-old male states started having c hest pain today around 11 states been a pressure pain has been light nature rates a 2 out of 10 currently no history of heart disease he denies any nausea or diaphoresis denies any shortness of breath denies any radiation of his pain. Associated symptoms: Deny abdominal pain, dyspnea, fever(s), nausea or vomiting Related Data Home Medications ?Medication ?Instructions ?Recorded ?Confirmed dorzolamide 2 % eye drops 1 drp ophthalmic (eye) BID 0 01/26/25 01/26/25 timolol maleate 0.5 % eye drops 1 drp ophthalmic (eye) BID 01/26/25 01/26/25 Previous Rx's ?Medication ?Instructions ?Recorded fenofibrate nanocrystallized 145 145 mg PO DAILY #90 t abs 10/12/24 mg tablet (Tricor) metformin 500 mg tablet,extended 500 mg PO BID #180 ta bs 10/12/24 release 24 hr adalimumab 40 mg/0.8 mL 40 mg (0.8 mL) SUBCUT Q14D # 2 ea 11/23/24 subcutaneous pen kit (Humira Pen) Allergies Allergy/AdvReac Type Severity Reaction Status Date / Time antipyrine (From Otic Care Allergy unknown Verified 09/29/24 14:20 (antipyrine)) benzocaine (From Otic Care Allergy unknown Verified 09/29/24 14:20 (antipyrine)) Review of Systems 2 Const: Denies: fever(s), chills, body aches or change in appetite ENMT: Denies: throat pain or dental pain Card: Reports: chest pain Resp: Denies: dyspnea GI: Denies: abdominal pain, nausea, vomiting or diarrhea Musc: Denies: neck pain or back pain Skin/Breast: Denies: rash Neuro: Denies: headache(s) PFSH ED 2 PFSH: Medical History Pulmonary embolism COVID-19 Immunization counseling Seropositive rheumatoid arthritis of multiple sites High risk medication use Encounter for health education Other care home (current) drug therapy Rheumatoid arthritis with positive rheumatoid factor Surgical History S/P left knee arthroscopy History of partial surgical removal of colon Hx of shoulder surgery Hx of eye surgery History of left cataract surgery Family History Other Cancer Diabetes Hypertension Rheumatoid arthritis Denies family history of Chronic kidney disease (CKD) Systemic lupus erythematosus (SLE) in adult Social History Smoking and tobacco/nicotine status: never used tobacco/nicotine Second hand smoke exposure: Yes Alcohol intake: current Alcohol intake frequency: holidays/special occasions only Substance/Drug Use: never Adopted: No Caregiver/support person: No Lives independently: Yes Household members: spouse Housing: House Marital status: service: No Current occupational status: employed Pets and animals: No Do you think of yourself as: Straight/Heterosexual Current gender identity: Male Physical Exam 2 Const: COMMON NORMALS: no acute distress, patient oriented x3 and healthy appearing HENMT: COMMON NORMALS: normocephalic and atraumatic HEAD & SCALP: n ormocephalic and atraumatic Eye: COMMON NORMALS: conjunctivae normal CONJUNCTIVA: Yes conjunctivae normal Neck/C-Spine: COMMON NORMALS: full ROM and supple Chest: COMMONS NORMALS: normal inspection of the chest Resp: COMMON NORMALS: normal respiratory effort, No retractions, No use of accessory muscles and clear to auscultation bilaterally AUSCULTATION: clear to auscultation bilaterally Cardio: COMMON NORMALS: regular rate, regular rhythm and No murmurs present (Cardio) RATE: regular rate RHYTHM: regular rhythm Extremity: COMMON NORMALS: normal to inspection and full ROM Neuro: COMMON NORMALS: patient oriented x3, moves all extremities and no focal motor deficits Psych: COMMON NORMALS: mental status grossly normal, Normal thought process present and cooperative THOUGHT PROCESS: Normal thought process present Skin: COMMON NORMALS: no rashes or lesions noted and no wounds GENERAL SKIN EXAM: no rashes or lesions noted Course 2 Vital Signs: Vital signs: Vital Signs Temperature 98.0 F 01/26/25 14:50 Pulse Rate 81 01/26/25 16:17 Respiratory Rate 16 01/26/25 14:50 Blood Pressure 115/88 01/26/25 16:17 Pulse Oximetry 96 01/26/25 16:17 Oxygen Delivery Me thod Room Air 01/26/25 16:17 MDM - Chest Pain Medical Decision Making Patient presents for chest pain initial repeat troponins are negative he has been pain-free here no signs of ACS he has no signs of dissection or pulm embolism he stable for discharge has follow-up with PCP return if worsening he understands agrees to plan Medical Records I reviewed the patient's medical records. Lab Data I reviewed the patient's lab results. 01/26/25 15:05 01/26/25 15:05 Radiology Impressions Chest X-Ray 01/26/25 14:48 IMPRESSION: 1. No acute cardiopulmonary finding. Laboratory Results WBC 10.15 10^3/uL (3.29-11.43) 01/26/25 15:05 RBC 5.53 10^6/uL (3.85-5.65) 01/26/25 15:05 Hgb 16.40 g/dL (11.27-16.99) 01/26/25 15:05 Hct 48.3 % (37-53) 01/26/25 15:05 MCV 87.3 fl (82-101) 01/26/25 15:05 MCH 29.7 pg (27-33) 01/26/25 15:05 MCHC 34.0 g/dL (30-55) 01/26/25 15:05 RDW 13.2 % (12.1-15.1) 01/26/25 15:05 Plt Count 236 10^3/cmm (157-399) 01/26/25 15:05 MPV 10.0 fL (7.4-10.4) 01/26/25 15:05 Neut % (Auto) 78.3 % 01/26/25 15:05 Lymph % (Auto) 10.9 % 01/26/25 15:05 [place] % (Auto) 8.6 % 01/26/25 15:05 Eos % (Auto) 1.7 % 01/26/25 15:05 Baso % (Auto) 0.2 % 01/26/25 15:05 Neut # (Auto) 7.95 10^3/uL (1.8-7.7) H 01/26/25 15:05 Lymph # (Auto) 1.1 10^3/uL (0.8-4.8) 01/26/25 15:05 [place] # (Auto) 0.9 10^3/uL (0.2-0.9) 01/26/25 15:05 Eos # (Auto) 0.2 10^3/uL (0.0-0.8) 01/26/25 15:05 Baso # (Auto) 0.0 10^3/uL (0.0-0.1) 01/26/25 15:05 Nucleated RBC % (auto) 0 % 01/26/25 15:05 Nucleated RBCs # 0.0 /100WBC 01/26/25 15:05 PT 13.40 SECONDS (12.1-14.9) 01/26/25 15:05 INR 0.95 (0.8-1.2) 01/26/25 15:05 Sodium 142 mmol/L (136-145) 01/26/25 15:05 Potassium 4.4 mmol/L (3.5-5.1) 01/26/25 15:05 Chloride 105 mmol/L (98-107) 01/26/25 15:05 Carbon Dioxide 23 mmol/L (22-29) 01/26/25 15:05 Anion Gap 18.4 (5-19) 01/26/25 15:05 BUN 18 mg/dL (8-23) 01/26/25 15:05 Creatinine 0.9 mg/dL (0.7-1.2) 01/26/25 15:05 GFR Calculation 85.0 mL/min (90-130) L 01/26/25 15:05 Glucose 100 mg/dL (65-115) 01/26/25 15:05 Calculated Osmolality 296 mOsm/kg (285-295) H 01/26/25 15:05 Calcium 9.3 mg/dL (8.5-10.5) 01/26/25 15:05 Total Bilirubin 1.0 mg/dL (0.15-1.2) 01/26/25 15:05 AST 38 U/L (0-40) 01/26/25 15:05 ALT 35 U/L (0-41) 01/26/25 15:05 Alkaline Phosphatase 53 U/L (40-130) 01/26/25 15:05 Troponin T Baseline 9 ng/L (0-15) 01/26/25 15:05 Troponin T 120 Minute 8.89 ng/L (0-15) 01/26/25 16:59 Delta Troponin T -0.11 ABS# (0-10) L 01/26/25 16:59 Total Protein 7.9 g/dL (6.6-8.7) 01/26/25 15:05 Albumin 4.5 g/dL (3.5-5.2) 01/26/25 15:05 Globulin 3.4 g/dL (1.3-4.6) 01/26/25 15:05 Lipase 24 U/L (13-60) 01/26/25 15:05 All radiology interpretation(s) finalized by discharge EKG Data EKG 1: I personally reviewed and interpreted this EKG as follows: EKG interpretation date: 01/26/25 EKG interpretation time: 14:54 Interpretation: nsr hr [address] elevation qrs 96 qtc 386 EKG 2: I personally reviewed and interpreted this EKG as follows: EKG interpretation date: 01/26/25 EKG interpretation time: 16:29 Interpretation: nsr hr [address] elevation qrs 102 [id number] Discharge Plan Discharge Patient Disposition: Home Clinical Impression: Chest pain Condition: Stable Prescriptions: No Action fenofibrate nanocrystallized [Tricor] 145 mg tablet 145 mg PO DAILY Qty: 90 1RF metformin 500 mg tablet extended release 24 hr 500 mg PO BID Qty: 180 1RF Humira Pen 40 mg/0.8 mL pen injector kit 40 mg SUBCUT Q14D Qty: 2 6RF timolol maleate 0.5 % drops 1 drp ophthalmic (eye) BID dorzolamide 2 % drops 1 drp ophthalmic (eye) BID Discharge Orders: Discharge ED (Routine); Ordered 01/26/25 Ordered By: Panchito Mo Referrals: Kaleigh Carmona FNP-C [Primary Care Provider, Family Practice] - 4-7 days Discharge Diet: Advance as tolerated Discharge Activity: Resume usual activity Patient Instructions: Chest Pain (ED) Print Language: Divehi Coding Level of Care Code ED 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
[2025-01-26 15:11] LABS: Basophils % 0.2 %; Eosinophils # 0.2 10^3/uL (0.0-0.8); Eosinophils % 1.7 %; Hematocrit 48.3 % (37-53); Lymphocytes # 1.1 10^3/uL (0.8-4.8); Lymphocytes % 10.9 %; Mean Corpuscular Hemoglobin 29.7 pg (27-33); Mean Corpuscular Volume 87.3 fl (82-101); Monocytes # 0.9 10^3/uL (0.2-0.9); Monocytes % 8.6 %; Neutrophils # 7.95 10^3/uL (1.8-7.7); Neutrophils % 78.3 %; Nucleated Red Blood Cells % 0 %; Platelet Count 236 10^3/cmm (157-399); Red Blood Count 5.53 10^6/uL (3.85-5.65); Red Cell Distribution Width 13.2 % (12.1-15.1); White Blood Count 10.15 10^3/uL (3.29-11.43)
[2025-01-26 15:35] LABS: INR 0.95 (0.8-1.2)
[2025-01-26 15:49] LABS: Troponin(5th) Baseline 9 ng/L (0-15)
[2025-01-26 15:51] LABS: Alanine Aminotransferase 35 U/L (0-41); Albumin Level 4.5 g/dL (3.5-5.2); Alkaline Phosphatase 53 U/L (40-130); Anion Gap 18.4 (5-19); Aspartate Amino Transferase 38 U/L (0-40); Blood Urea Nitrogen 18 mg/dL (8-23); Calcium 9.3 mg/dL (8.5-10.5); Carbon Dioxide 23 mmol/L (22-29); Chloride 105 mmol/L (98-107); Creatinine Clr Calc Pharmacy 93.9294; Globulin 3.4 g/dL (1.3-4.6); Glucose 100 mg/dL (65-115); Lipase 24 U/L (13-60); Osmolality Calculated 296 mOsm/kg (285-295); Potassium 4.4 mmol/L (3.5-5.1); Sodium 142 mmol/L (136-145); Total Protein 7.9 g/dL (6.6-8.7)
[2025-01-26 16:17] VITALS: BP 115/88; PULSE 81; O2SAT 96
--- NOTE | 2025-01-26 16:48 | ECG_ITS ---
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
[2025-01-26 17:42] LABS: Troponin 5 2HR 8.89 ng/L (0-15)
[2025-01-26 17:43] LABS: Troponin 5 2HR Delta -0.11 ABS# (0-10)
[2025-01-26 17:52] VITALS: BP 125/83; PULSE 82; O2SAT 96
[2025-01-26 18:06] VITALS: BP 126/86; PULSE 80; O2SAT 94
== END 2025-01-26 18:07 | disposition home or self-care (01) ==
PROVIDERS: Emergency Provider Emergency Medicine; PCP Nurse Practitioner Family
DX: R07.9 Chest pain, unspecified (principal); Z79.84 Long term (current) use of oral hypoglycemic drugs
CPT/HCPCS: 71045; 80053; 83690; 84484; 85025; 85610; 93005; 99285

== ENCOUNTER → 2025-02-11 13:30 | Outpatient (BNVA) | payer OTHER, SELFPAY | PROVIDERS: PCP Nurse Practitioner Family; Visit Provider Nurse Practitioner Family | DX: E11.65 Type 2 diabetes mellitus with hyperglycemia (principal) | CPT/HCPCS: 84439; 84443 ==

== ENCOUNTER → 2025-02-12 13:05 | Outpatient (BNVA) | payer OTHER, SELFPAY | PROVIDERS: PCP Nurse Practitioner Family; Visit Provider Nurse Practitioner Family | DX: E11.65 Type 2 diabetes mellitus with hyperglycemia (principal) | CPT/HCPCS: 84439; 84443 ==

== ENCOUNTER → 2025-05-20 13:33 | Outpatient (BNVA) | payer OTHER, SELFPAY | PROVIDERS: Visit Provider Nurse Practitioner Family | DX: Z79.899 Other long term (current) drug therapy (principal); E03.9 Hypothyroidism, unspecified | CPT/HCPCS: 80076; 82306; 82565; 84443; 85025; 85651; 86140 ==

== ENCOUNTER → 2025-06-17 11:22 | Outpatient (BNVA) | payer OTHER, SELFPAY | PROVIDERS: PCP Nurse Practitioner Family; Visit Provider Nurse Practitioner Family | DX: E11.65 Type 2 diabetes mellitus with hyperglycemia (principal); R35.0 Frequency of micturition; R39.12 Poor urinary stream | CPT/HCPCS: 80053; 80061; 83036; 84153; 84443; 85025; 85651 ==

== ENCOUNTER 2025-06-18 10:03 | Outpatient (CLI) | payer OTHER, SELFPAY ==
[2025-06-18] MEDS: iohexol 350 mg/mL 500 mL Btl (per mL) IV (10:46)
[2025-06-18] MEDS: iohexol 350 mg/mL 500 mL Btl (per mL) PO (10:46)
--- NOTE | 2025-06-18 11:00 | CT_ITS ---
WS: [id number] CT ABDOMEN AND PELVIS WITH CONTRAST HISTORY: R10.814 - Left lower quadrant abdominal tenderness TECHNIQUE: Imaging performed of the abdomen and pelvis with IV contrast. Single phase imaging of the abdomen. Coronal and sagittal reformats are submitted. All CT scans at [facility] use at least one of these dose optimization techniques: automated exposure control; mA and/or kV adjustment per patient size (includes targeted exams where dose is matched to clinical indication); or iterative reconstruction. IV CONTRAST: Omnipaque 350; 100 mL IV. Oral contrast: Yes. DLP: 471.83 mGy.cm COMPARISON: 10/02/2018 Lower thorax: Emphysematous changes at the lung bases. Granulomatous disease. Heart is normal size. Small hiatal hernia. Liver/biliary system: Normal size with no intrahepatic dilatation. Gallbladder: Well-distended gallbladder with stones. No acute cholecystitis. Pancreas: Normal size pancreas and pancreatic duct. No adjacent inflammation. Spleen: Normal size spleen. No mass or infarct. Adrenal glands: Normal. Right kidney: Normal size kidney. No obstruction. Several nonobstructing calcifications in the renal pelvis. Normal RIGHT ureter. Left kidney: Normal size kidney with no obstruction. Normal ureter. Aorta: Normal. Lymphadenopathy: None. Free fluid: None. GI tract: Nondistended stomach. No small bowel obstruction. Normal appendix. Partial colectomy. Anastomotic sutures noted at the sigmoid. There is mild patulous appearance at the anastomotic site which is similar to the prior study. No obstruction. No evidence for acute diverticulitis. Abdominal wall: Unremarkable abdominal wall. No hernia. Pelvis: No free fluid or adenopathy within the pelvis. Prostate gland is enlarged and mildly heterogeneous encroaching into the base of the bladder. Bones: Unremarkable. CT/CT abdomen pelvis w con* [id number] IMPRESSION: 1. No acute abdominal or pelvic abnormalities. 2. Sigmoid anastomosis is intact. Mildly patulous but stable appearance near t he anastomotic sutures. There is no obstruction. No abscess or inflammation. 3. Cholelithiasis without acute cholecystitis. 4. No renal obstruction.
== END 2025-06-18 10:04 | disposition home or self-care (01) ==
LOC: RAD 10:03
PROVIDERS: PCP Nurse Practitioner Family; Visit Provider Nurse Practitioner Family
DX: K80.20 Calculus of gallbladder without cholecystitis without obstruction (principal); R35.1 Nocturia; R39.12 Poor urinary stream; Z87.19 Personal history of other diseases of the digestive system; J43.9 Emphysema, unspecified; J84.10 Pulmonary fibrosis, unspecified; K44.9 Diaphragmatic hernia without obstruction or gangrene; N28.89 Other specified disorders of kidney and ureter; Z90.49 Acquired absence of other specified parts of digestive tract; N40.0 Benign prostatic hyperplasia without lower urinary tract symptoms
CPT/HCPCS: 74177

== ENCOUNTER 2025-06-25 10:18 | Outpatient (CLI) | payer OTHER, SELFPAY ==
[2025-06-25 10:22] VITALS: BMI 27.8
--- NOTE | 2025-06-25 10:23 | ECG_ITS ---
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 Interpretive Statements EXERCISE STRESS TEST EXERCISE DATA: The patient was exercised by Rubén protocol. Baseline heart rate was 71 beats per minute. Baseline blood pressure was 112/79 millimeters of mercury. Maximal predicted heart rate was 156 beats per minute. Maximum heart rate achieved was 154, which was 98% of the maximum predicted heart rate. Maximum blood pressure was 180/90 millimeters of mercury. Total exercise time was 9 Minutes and 49 seconds. Maximum METs achieved was 13.5. The reason for ending the test was maximal effort achieved. The patient complained of shortness of breath during the stress test, which then resolved at the end of the test. ELECTROCARDIOGRAM: BASELINE: Showed sinus rhythm, normal axis, no significant ST-T changes at the baseline noted. [] EXERCISE: At the peak exercise level, [] No significant ST-T changes suggestive of ischemia noted. [] RECOVERY: During the recovery period, heart rate dropped appropriately. No significant ST-T changes in the recovery suggestive of ischemia noted. [] CONCLUSION: 1. Exercise capacity is excellent 2. Heart rate response was appropriate 3. Blood pressure response was appropriate 4. Symptoms not suggestive of ischemia. 5. Stress test does not show ischemia Electronically Signed On 06-27-2025 15:12:25 CDT by Mayito Agudelo M.D. [email or web address]
[2025-06-25 11:00] VITALS: BP 128/88; PULSE 90
== END 2025-06-25 10:19 | disposition home or self-care (01) ==
LOC: CDL 10:21
PROVIDERS: PCP Nurse Practitioner Family; Visit Provider Internal Medicine Cardiovascular Disease
DX: R06.02 Shortness of breath (principal)
CPT/HCPCS: 93017

== ENCOUNTER → 2025-09-01 11:25 | Outpatient (BNVA) | payer OTHER, SELFPAY | PROVIDERS: PCP Nurse Practitioner Family; Visit Provider Nurse Practitioner Family | DX: R05.9 Cough, unspecified (principal) | CPT/HCPCS: 87400; 87426 ==